=== PATIENT | male | born 1950 | race Caucasian/White ===

== ENCOUNTER → 2023-07-13 | Outpatient (CLI) | payer OTHER ==
[2023-07-13 10:43] LABS: FREE T4 (FREE THYROXINE) 0.84 ng/dL (0.76-1.46); THYROID STIMULATING HORMONE 2.25 uIU/mL (0.36-3.74)
== END | disposition home or self-care (01) ==
LOC: MSR 09:55
PROVIDERS: ATTEND Chiropractor
DX: E04.1 Nontoxic single thyroid nodule (principal); J44.9 Chronic obstructive pulmonary disease, unspecified
CPT/HCPCS: 71046; 84439; 84443; 84481; 36415-L1; 36415-TC